=== PATIENT | male | born 1980 | race Two or more races ===

== ENCOUNTER → 2018-10-08 | Day surgery (SDC) | payer OTHER ==
[~2018-10-08] MED LIST: PERCOCET 5-3251 EACH PO; RECTICARE30 GM TOP
== END | disposition home or self-care (01) ==
LOC: ADM 09-29 10:00 → CIR.AMB 05:50 → AMB-ENDOS 10:00 → CIR.AMB 10:00
DX: K60.3 Anal fistula (principal)